=== PATIENT | male | born 1995 | race Two or more races ===

== ENCOUNTER 2021-06-13 08:44 | Emergency (ER) | payer SELFPAY ==
--- NOTE | 2021-06-13 09:00 | NUR ---
Called NO response- Per Investigative Shopper Erika "He Left"
--- NOTE | 2021-06-13 09:05 | NUR ---
Called NO response- Per Fruit Buyer Erika "He Left"
--- NOTE | 2021-06-13 09:12 | NUR ---
Called NO response- Per Analysis Consultant Erika "He Left"
== END 2021-06-13 09:13 | disposition home or self-care (01) ==
LOC: ER 08:47
DX: Z53.21 Procedure and treatment not carried out due to patient leaving prior to being seen by health care provider (principal)

== ENCOUNTER 2021-08-12 21:32 | Emergency (ER) | payer OTHER ==
[~2021-08-12] VITALS: Ht 172.7 cm; Wt 77.1 kg
--- NOTE | 2021-08-12 22:35 | NUR ---
TO ER BED 1. BIBS C/O CHEST PAIN RADIATING TO BACK X 3 HOURS. MOVEMENT MAKES IT WORSE. PT STATES "FEELS LIKE CRAMPING". TOOK ASPIRIN WITH LITTLE RELIEF. CONNECTED TO MONITOR. AWAITING MD BRYANT
--- NOTE | 2021-08-12 22:42 | NUR ---
XRAY AT BEDSIDE
[2021-08-12] MEDS ORDERED: KETOROLAC TROMETHAMINE INJ 30 MG/ML VIAL ONE (22:43)
[2021-08-12] MEDS: KETOROLAC TROMETHAMINE INJ 30 MG/ML VIAL IV ONE (22:50)
[2021-08-12 22:58] LABS: BASOPHILS % (AUTO) 0.6 % (0.0-2.0); EOSINOPHILS % (AUTO) 1.6 % (0.0-6.0); HEMATOCRIT 43 % (39-51); HEMOGLOBIN 14.6 g/dL (13.5-17.5); LYMPHOCYTES # (AUTO) 1.6 K/uL (0.8-4.8); MEAN CORPUSCULAR HGB CONC 34 g/dl (31.0-36.0); MEAN CORPUSCULAR VOLUME 86 fL (80-96); MONOCYTES # (AUTO) 0.9 K/uL (0.1-1.30); MONOCYTES % (AUTO) 12.4 % (2.0-12.0); NEUTROPHILS # (AUTO) 4.8 K/uL (1.8-8.9); NEUTROPHILS % (AUTO) 64.4 % (43.0-81.0); PLATELET COUNT (AUTO) 271 K/uL (150-450); RED BLOOD CELL COUNT(AUTO) 4.99 MIL/uL (4.5-6.0); WHITE BLOOD COUNT (AUTO) 7.4 K/uL (4.3-11.0)
--- NOTE | 2021-08-12 22:59 | NUR ---
INGA OGOD AT BEDSIDE FOR EKG
[2021-08-12 23:14] LABS: ALANINE AMINOTRANSFERASE 24 U/L (12-78); ALBUMIN 4.4 g/dL (3.4-5.0); ALKALINE PHOSPHATASE 101 U/L (46-116); ASPARTATE AMINOTRANSFERASE 14 U/L (15-37); BILIRUBIN,DIRECT 0.1 mg/dL (0.0-0.2); BILIRUBIN,TOTAL 0.5 mg/dL (0.2-1.0); CALCIUM, SERUM 8.9 mg/dL (8.5-10.1); CARBON DIOXIDE 29 mmol/L (21-32); CHLORIDE 101 mmol/L (98-107); GLUCOSE 98 mg/dL (74-106); POTASSIUM 3.3 mmol/L (3.5-5.1); SODIUM SERUM 138 mmol/L (136-145); TOTAL PROTEIN, SERUM 7.6 g/dL (6.4-8.2); UREA NITROGEN, BLOOD 18 mg/dL (7-18)
[2021-08-12 23:19] LABS: D-DIMER 0.19 mg/L(FEU (0.17-0.50)
--- NOTE | 2021-08-13 01:40 | NUR ---
IV removed. Catheter intact and site benign. Pressure and 4x4 applied to site. No bleeding noted.
--- NOTE | 2021-08-13 01:40 | NUR ---
Patient discharged to home in stable condition. Written and verbal after care instructions given. Patient verbalizes understanding of instruction.
[2021-08-13 01:41] VITALS: BP 119/70
== END 2021-08-13 01:41 | disposition home or self-care (01) ==
LOC: ER 21:44
DX: R07.89 Other chest pain (principal)
CPT/HCPCS: 36415 ×2; 71045; 80048; 80076; 84484 ×2; 85025; 85378; 85730; 93005; 96374; 99285; J1885

== ENCOUNTER 2022-03-07 20:21 | Emergency (ER) | payer OTHER ==
[~2022-03-07] VITALS: Ht 170.2 cm; Wt 77.1 kg
--- NOTE | 2022-03-07 21:40 | NUR ---
BIBSELF C/O LEFT SIDE CP X 1 DAY +N/V. PT A/OX4. TOLERATING R/A WELL WITH NO RESP DISTRESS. RR EVEN AND NONLABORED. SAFETY MEASURES IN PLACE.
--- NOTE | 2022-03-07 22:11 | NUR ---
EMT AT PT'S BEDSIDE FOR EKG
[2022-03-07] MEDS ORDERED: ASPIRIN 81 MG TAB.CHEW PO ONE (22:30)
[2022-03-07 22:42] LABS: BASOPHILS % (AUTO) 0.3 % (0.0-2.0); EOSINOPHILS % (AUTO) 0.5 % (0.0-6.0); HEMATOCRIT 43 % (39-51); HEMOGLOBIN 14.6 g/dL (13.5-17.5); LYMPHOCYTES # (AUTO) 1.3 K/uL (0.8-4.8); LYMPHOCYTES % (AUTO) 12.8 % (20.0-44.0); MEAN CORPUSCULAR HGB CONC 34 g/dl (31.0-36.0); MEAN CORPUSCULAR VOLUME 85 fL (80-96); MONOCYTES # (AUTO) 0.7 K/uL (0.1-1.30); MONOCYTES % (AUTO) 6.6 % (2.0-12.0); NEUTROPHILS # (AUTO) 8.1 K/uL (1.8-8.9); NEUTROPHILS % (AUTO) 79.8 % (43.0-81.0); PLATELET COUNT (AUTO) 283 K/uL (150-450); RED BLOOD CELL COUNT(AUTO) 5.06 MIL/uL (4.5-6.0); WHITE BLOOD COUNT (AUTO) 10.2 K/uL (4.3-11.0)
[2022-03-07 22:55] LABS: CALCIUM, SERUM 8.6 mg/dL (8.5-10.1); CARBON DIOXIDE 27 mmol/L (21-32); CHLORIDE 104 mmol/L (98-107); CREATININE 0.9 mg/dL (0.6-1.3); GLUCOSE 108 mg/dL (74-106); POTASSIUM 3.6 mmol/L (3.5-5.1); SODIUM SERUM 138 mmol/L (136-145); UREA NITROGEN, BLOOD 13 mg/dL (7-18)
[2022-03-07] MEDS ORDERED: ASPIRIN 325 MG TABLET ONE (22:58)
--- NOTE | 2022-03-08 02:06 | NUR ---
Patient discharged to home in stable condition. Written and verbal after care instructions given. Patient verbalizes understanding of instruction.
[2022-03-08 02:07] VITALS: BP 132/70
== END 2022-03-08 02:07 | disposition home or self-care (01) ==
LOC: ER 20:22
DX: R07.89 Other chest pain (principal); R94.31 Abnormal electrocardiogram [ECG] [EKG]; Z60.2 Problems related to living alone
CPT/HCPCS: 36415; 71045-TC; 80048-TC; 84484-TC; 85025-TC; 85652-TC